=== PATIENT | male | born 1955 | race Caucasian/White ===

== ENCOUNTER → 2016-11-22 | Outpatient (CLI) | payer OTHER ==
[~2016-11-22] VITALS: Ht 180.3 cm; Wt 88.6 kg
[~2016-11-22] MED LIST: CHLORHEXIDINE GLUCONATE 2 % 1 PACK (2 CLOTHS) TOPICAL PRN; GABA300C5 PO; INSULIN HUMAN REGULAR 1,000 UNITS/10 ML VIAL SQ PRN; LACTATED RINGER'S 1000 ML IV PRN; LANS30CA PO; LISI-515 PO; LORA1TAB12 PO; METOPROLOL TARTRATE 25 MG TAB PO PRN; POVIDONE IODINE 5% (ANTISEPSIS KIT) 4 APPLICATIONS EACH NARE PRN; PROPOFOL 200 MG/20 ML AMP IV ONE; SODIUM CHLORID 0.9% 500 ML IV PRN
[2016-11-22 08:20] VITALS: PULSE 77; RESP 20; TEMP 97.8; O2SAT 97
[2016-11-22 10:28] VITALS: TEMP 97.8
[2016-11-22 10:37] VITALS: BP 151/93; PULSE 68; RESP 18; O2SAT 97
--- NOTE | 2016-11-22 16:03 | EKG ---
Date Performed: 11/22/2016 Time Performed: 07:40:28 PTAGE: 61 years EKG: Sinus rhythm NORMAL ECG Compared to prior tracing no significant change PREVIOUS TRACING : 10/25/2010 08.52 DOCTOR: Hilary Archuleta Interpretating Date/Time 11/22/2016 16:02:38
== END ==
LOC: HEND 07:08
DX: Z87.19 Personal history of other diseases of the digestive system (principal); K31.7 Polyp of stomach and duodenum; Z86.010 Personal history of colon polyps; K57.30 Diverticulosis of large intestine without perforation or abscess without bleeding; K63.5 Polyp of colon; I10 Essential (primary) hypertension
CPT/HCPCS: 00740; 43235; 45385; 93005; J7120

== ENCOUNTER 2017-07-30 10:51 | Emergency (ER) | payer OTHER ==
[~2017-07-30 10:51] MED LIST changes: -CHLORHEXIDINE GLUCONATE 2 % 1 PACK (2 CLOTHS) TOPICAL PRN; -INSULIN HUMAN REGULAR 1,000 UNITS/10 ML VIAL SQ PRN; -LACTATED RINGER'S 1000 ML IV PRN; -METOPROLOL TARTRATE 25 MG TAB PO PRN; -POVIDONE IODINE 5% (ANTISEPSIS KIT) 4 APPLICATIONS EACH NARE PRN; +PROP40TA3 PO; -PROPOFOL 200 MG/20 ML AMP IV ONE; -SODIUM CHLORID 0.9% 500 ML IV PRN
[2017-07-30 10:56] VITALS: BP 207/122; PULSE 75; RESP 14; TEMP 98; O2SAT 97
[2017-07-30 10:57] VITALS: BP 199/109
[2017-07-30 11:15] VITALS: BP 183/118; PULSE 78; RESP 18; O2SAT 99
--- NOTE | 2017-07-30 11:24 | PD ---
HPI Chief Complaint: Hypertension Time Seen by Provider: 11:07 Travel History International Travel<30 days: No Contact w/Intl Traveler<30days: No Traveled to known affect area: No History of Present Illness HPI 62-year-old male with history of hypertension presents to emergency department today for evaluation of hypertension persisting over the last 3 days, despite taking his listen appropriate. Patient states he has had this issue in the past and has discussed with his primary care provider changing his lisinopril, however he states he remains on 20 mg of lisinopril. Patient contacted his physician's office on Monday and left a message with the nurse, however the patient did not hear anything back with. With his pressure remained elevated he felt he should come to the emergency department for alternative medication. He denies any headache, blurry vision, focal deficit, or weakness. Denies any chest pain or tightness. He has no other symptoms reported this time. PFSH Past Medical History Anxiety: Yes Cancer: Yes (BCC; SQUAMOUS CELL ) Cardiovascular Problems: Yes (HTN) Diabetes: No Hepatitis: No Hiatal Hernia: No Hypertension: Yes Kidney Stones: Yes (2 SMALL ONES) Medical other: No Respiratory: No Thyroid Disease: No Past Surgical History Abdominal Surgery: Yes (LEFT INGUINAL HERNIA REPAIR) AICD: No Body Medical Devices: ABDOMINAL MESH/INGUINAL HERNIA REPAIR Joint Replacement: No Oral Surgery: Yes (T&A) Pacemaker: No Other Surgery: Yes Social History Alcohol Use: No Tobacco Use: No Substance Use: No Allergies-Medications (Allergen,Severity, Reaction): Coded Allergies: prochlorperazine (Unverified Allergy, Mild, ANXIETY, 05/10/17) chlorthalidone (Unverified Adverse Reaction, Intermediate, marked malaise days after starting, 05/10/17) He tolerated HCTZ well before chlorthalidone and could be restarted on it if needed. Reported Meds & Prescriptions Reported Meds & Active Scripts Active Lisinopril 20 Mg Tab 20 Mg PO DAILY Propranolol (Propranolol HCl) 40 Mg Tab 40 Mg PO DAILY PRN Gabapentin 300 Mg Cap 600 Mg PO HS Lansoprazole 30 Mg Capdr 30 Mg PO DAILY Lorazepam 1 Mg Tab 1 Mg PO DIRECTED PRN 1/2 to 1 tab po bid prn pain (0.5-1mg po bid prn) Review of Systems Except as stated in HPI: all other systems reviewed are Neg Physical Exam Narrative GENERAL: Well-nourished, well-developed male patient, ambulatory and in no acute distress SKIN: Focused skin assessment warm/dry. HEAD: Normocephalic. EYES: No scleral icterus. No injection or drainage. NECK: Supple, trachea midline. No JVD or lymphadenopathy. CARDIOVASCULAR: Regular rate and rhythm without murmurs, gallops, or rubs. RESPIRATORY: Breath sounds equal bilaterally. No accessory muscle use. GASTROINTESTINAL: Abdomen soft, non-tender, nondistended. MUSCULOSKELETAL: No cyanosis, or edema. BACK: Nontender without obvious deformity. No CVA tenderness. Data Data Last Documented VS Vital Signs Date Time Temp Pulse Resp B/P (MAP) Pulse Ox O2 Delivery O2 Flow Rate FiO2 07/30/17 11:24 74 18 98 Room Air 07/30/17 11:15 183/118 (139) 07/30/17 10:56 98.0 Orders Orders Lisinopril (Prinivil) (07/30/17 11:30) Ed Discharge Order (07/30/17 11:25) [facility] Medical Decision Making Medical Screen Exam Complete: Yes Emergency Medical Condition: Yes Medical Record Reviewed: Yes Differential Diagnosis Hypertension versus kidney disease versus noncompliance Narrative Course 62-year-old male presents to emergency department for evaluation of elevated pressure. Patient is hypertensive here. He is asymptomatic. No focal deficits or weakness. I discussed the patient my attending physician. We'll give him an additional 10 mg of lisinopril today, totaling today's dose of 30 mg by mouth. I encouraged him to check his blood pressure in the morning and at night and to keep a journal. I also instructed him to contact his doctor's office tomorrow for an appointment for follow-up. He agrees to return immediately with any acute worsening symptoms. He and his are comfortable with this plan of care. Diagnosis Primary Impression: Hypertension Qualified Codes: I10 - Essential (primary) hypertension Referrals: Primary Care Physician Patient Instructions: General Instructions, Hypertension (ED) Additional Instructions: We gave you an additional 10 mg of lisinopril here in emergency department Check your blood pressure this evening. If it has decreased to systolic less than 160, continue with 30 mg by mouth daily until you see your primary care provider If it has not decreased, you may take 2 tablets or 40 mg by mouth daily until you see your primary care provider Consider talking with your primary care provider about alternative antihypertensive medications Call them tomorrow to schedule an appointment Return immediately to the emergency department if he develops any acute symptoms Med/Other Pt SpecificInfo: Existing Med Changed Disposition: 01 DISCHARGE HOME Condition: Stable Pratima Gruber Jul 30, 2017 11:24
[2017-07-30] MEDS ORDERED: LISINOPRIL 10 MG TAB PO ONE (11:30)
[2017-07-31] MEDS ORDERED: AMLO5TAB2 PO (10:56)
[2017-07-31] MEDS ORDERED: LORA1TAB12 PO (10:57)
== END 2017-07-30 13:03 | disposition home or self-care (01) ==
LOC: NEPE 10:51
DX: I10 Essential (primary) hypertension (principal); F41.9 Anxiety disorder, unspecified; Z79.899 Other long term (current) drug therapy; Z88.8 Allergy status to other drugs, medicaments and biological substances
CPT/HCPCS: 99283